=== PATIENT | female | born 1935 | race Two or more races ===

== ENCOUNTER 2017-01-06 10:30 | Emergency (ER) | payer OTHER, MEDICARE ==
[~2017-01-06] VITALS: Ht 167.6 cm; Wt 60.3 kg
--- NOTE | 2017-01-06 10:30 | NUR ---
PT BIB [facility], TRIP/FALL WHILE JOGGING, INJURY TO FACE/RIGHT WRIST AND KNEE. COMPLAINS OF PAIN ON RT WRIST AND KNEE. NO SOB. PLACED ON MONITOR. VSS. AWAITING MD ORDER
[2017-01-06] MEDS ORDERED: TDAP [DIPH/PERTUSSIS/TET] 0.5 ML VIAL IM ONE ×2 (10:41→11:00)
--- NOTE | 2017-01-06 11:30 | NUR ---
RT WRIST #20 IV ACCESS
--- NOTE | 2017-01-06 11:47 | NUR ---
CALLED DR HARRIS [phone] AND LEFT A VOICEMAIL FOR A CALL BACK ON CONSULT
--- NOTE | 2017-01-06 12:12 | NUR ---
ADMITTING DETERMINED THAT INSURANCE IS WITH [place] [facility] CALLED FOR SHILOH VERGARA FROM [place] [facility]
--- NOTE | 2017-01-06 12:21 | NUR ---
(16) FR song catheter inserted per sterile protocal. Immediate output (100 )ML of urine, color (STRAW ), clarity (CLEAR )
[2017-01-06 12:22] LABS: BASOPHILS % (AUTO) 0.7 % (0.0-2.0); EOSINOPHILS % (AUTO) 0.3 % (0.0-6.0); HEMATOCRIT 30 % (33-45); HEMOGLOBIN 9.4 g/dL (11.5-14.8); LYMPHOCYTES # (AUTO) 0.8 /CMM (0.8-4.8); LYMPHOCYTES % (AUTO) 11.4 % (20.0-44.0); MEAN CORPUSCULAR HEMOGLOBIN 22 PG (26.0-33.0); MEAN CORPUSCULAR HGB CONC 32 g/dl (31.0-36.0); MEAN CORPUSCULAR VOLUME 69 fL (82-100); MONOCYTES # (AUTO) 0.3 /CMM (0.1-1.30); MONOCYTES % (AUTO) 4.4 % (2.0-12.0); NEUTROPHILS # (AUTO) 5.8 /CMM (1.8-8.9); NEUTROPHILS % (AUTO) 83.2 % (43.0-81.0); PLATELET COUNT (AUTO) 276 /CMM (150-450); RDW COEFFICIENT OF VARIATION 16.5 (11.5-15.0); RED BLOOD CELL COUNT(AUTO) 4.31 MIL/uL (4.0-5.2); WHITE BLOOD COUNT (AUTO) 6.9 K/uL (4.3-11.0)
[2017-01-06 12:32] LABS: CREATININE 1.3 mg/dL (0.6-1.3); POTASSIUM 3.5 mmol/L (3.5-5.1)
[2017-01-06 12:36] LABS: INR 0.93 (0.87-1.13); PROTHROMBIN TIME 9.7 SECS (9.5-12.7)
--- NOTE | 2017-01-06 12:55 | NUR ---
RT WRIST SPLINT APPLIED TOLERATED WELL.
--- NOTE | 2017-01-06 13:14 | NUR ---
[facility] - PT WILL LIKELY GO TO [facility] BUT THEY ARE WAITING FOR AN ACCEPTING MD
--- NOTE | 2017-01-06 13:48 | NUR ---
SPOKE W/ KENJI AT [facility] PT GOING TO [facility] 40-1 HOUR ETA. ACCEPTING MD IS DR MAYS NUMBER TO CALL REPORT IS [phone]
--- NOTE | 2017-01-06 14:48 | NUR ---
REPORT GIVEN TO EMT/TX TEAM FOR [facility]
[2017-01-06 14:49] VITALS: BP 176/82
--- NOTE | 2017-01-06 14:59 | NUR ---
REPORT GIVEN TO NURSE BARRERA FOR [facility]
--- NOTE | 2017-01-06 15:01 | NUR ---
PATIENT TRANSPORTED TO [facility]. S
--- NOTE | 2017-01-06 15:02 | NUR ---
PATIENTS CATALINO FLANNERY [phone]
== END 2017-01-06 15:02 | disposition short-term general hospital (02) ==
LOC: ER 10:32
DX: S12.500A Unspecified displaced fracture of sixth cervical vertebra, initial encounter for closed fracture (principal); S59.201A Unspecified physeal fracture of lower end of radius, right arm, initial encounter for closed fracture; R51 Headache; W01.0XXA Fall on same level from slipping, tripping and stumbling without subsequent striking against object, initial encounter; Y93.89 Activity, other specified; Y92.89 Other specified places as the place of occurrence of the external cause; Y99.8 Other external cause status
CPT/HCPCS: 29125; 36415; 51702; 70450; 72125; 73110; 80048; 85025; 85730; 87081; 90471; 90715; 93005; 99291; A4606; L0172; Z7610